=== PATIENT | female | born 1990 | race Asian ===

== ENCOUNTER 2019-02-01 23:27 | Emergency (ER) | payer MEDICAID ==
[~2019-02-01] VITALS: Ht 157.5 cm; Wt 68.0 kg
[2019-02-01 23:58] VITALS: Ht 157.5 cm; Wt 68.0 kg
[2019-02-02 03:15] LABS: BASOPHIL % 0.5 % (0-2); PLATELET COUNT 217 x10^3mcL (130-400); RED CELL DISTRIBUTION WIDTH 12.9 % (11.5-14.5)
[2019-02-02 05:58] VITALS: BP 102/59
== END 2019-02-02 05:58 | disposition home or self-care (01) ==
LOC: ED 23:27
PROVIDERS: Emergency Medicine
DX: O20.9 Hemorrhage in early pregnancy, unspecified (principal); Z3A.08 8 weeks gestation of pregnancy
CPT/HCPCS: 36415

== ENCOUNTER 2019-04-03 15:49 | Emergency (ER) | payer OTHER ==
[~2019-04-03] VITALS: Ht 157.5 cm; Wt 67.1 kg
[2019-04-03 16:14] VITALS: Ht 157.5 cm; Wt 67.1 kg
[2019-04-03 20:24] VITALS: BP 99/64
== END 2019-04-03 20:24 | disposition home or self-care (01) ==
LOC: ED 15:49
DX: S29.011A Strain of muscle and tendon of front wall of thorax, initial encounter (principal); X58.XXXA Exposure to other specified factors, initial encounter; Y93.89 Activity, other specified; Y92.89 Other specified places as the place of occurrence of the external cause; Y99.8 Other external cause status
CPT/HCPCS: Q0092